=== PATIENT | female | born 1950 | race Caucasian/White ===

== ENCOUNTER 2018-11-15 08:38 | Inpatient (IN) | payer OTHER ==
[2018-11-11 17:19] LABS: BASOPHILS % 0.4 % (0.0-1.0); EOSINOPHILS # (AUTO) 0.2 (0.0-0.4); EOSINOPHILS % 3.3 % (0.0-6.0); HEMATOCRIT 44.8 % (34.2-44.1); HEMOGLOBIN 14.7 g/dL (12.0-16.0); LYMPHOCYTES # (AUTO) 1.2 (1.0-3.2); LYMPHOCYTES % 17.5 % (18.0-39.1); MEAN CORPUSCULAR HEMOGLOBIN 29.5 pg (28-32); MEAN CORPUSCULAR HGB CONC 32.8 g/dL (31-35); MEAN CORPUSCULAR VOLUME 89.8 fL (81-99); MONOCYTES # (AUTO) 0.5 (0.2-0.8); MONOCYTES % 6.7 % (4.4-11.3); NEUTROPHILS # (AUTO) 4.9 (2.1-6.9); NEUTROPHILS % 71.7 % (38.7-80.0); PLATELET COUNT 306 x10e3/uL (140-360); RED BLOOD COUNT 4.99 x10e6/uL (3.6-5.1); RED CELL DISTRIBUTION WIDTH 13.8 % (11.7-14.4)
[2018-11-11 17:37] LABS: ANION GAP 12.3 mmol/L (8-16); BLOOD UREA NITROGEN 10 mg/dL (7-26); BUN/CREATININE RATIO 14 (6-25); CALCIUM 9.7 mg/dL (8.4-10.2); CARBON DIOXIDE 31 mmol/L (22-29); CHLORIDE 101 mmol/L (98-107); CREATININE, SERUM 0.73 mg/dL (0.57-1.11); EST GLOMERULAR FILTRATION RATE > 60 ML/MIN (60-); GLUCOSE 119 mg/dL (74-118); POTASSIUM 3.3 mmol/L (3.5-5.1); SODIUM 141 mmol/L (136-145)
[~2018-11-15] VITALS: Ht 167.6 cm; Wt 140.2 kg
[~2018-11-15 08:38] MED LIST: HYDROCHLOROTHIA25 MG PO; METOPROLOL SUCC25 MG PO; MULTIVITAMINS1 EAC7 PO
--- OUTSIDE RECORDS SUMMARY | 2018-11-15 08:57 | XMS REPORT | Summary of Care ---
Author Author JANEL NGUYỄN Organization Unknown Address Unknown Phone Unavailable Care Team Providers Care Commercial Banker Name Role Phone JANEL NGUYỄN Unavailable Unavailable JONAS MADDEN [place], JACQUELINE MENDOZA Unavailable Unavailable BAILEY MADDEN [place], EDEL Unavailable Unavailable JONAS Gutierrez, JACQUELINE Sanchez Unavailable Unavailable Unavailable Functional Status Name Dates Details Functional status health issues are not documented Status: Name Dates Details Cognitive status health issues are not documented Status: Problems Name Dates Details Acute pharyngitis (462, J02.9) Status: Active Acute upper respiratory infection (465.9, J06.9) Status: Active Hyperglycemia (790.29, R73.9) Status: Active Heme positive stool (792.1, R19.5) Status: Active Impaired fasting glucose (790.21, R73.01) Status: Active Acute bacterial bronchitis (466.0, J20.8) Status: Active Elevated BP without diagnosis of hypertension (796.2, R03.0) Status: Active Prediabetes (790.29, R73.03) Status: Active Osteopenia (733.90, M85.80) Status: Active Right knee pain (719.46, M25.561) Status: Active Encounter for hepatitis C virus screening test for high risk patient (V73.89, Z11.59) Status: Active Depression screening negative (V79.0, Z13.31) Status: Active Herpes simplex type 1 infection (054.9, B00.9) Status: Active Morbid obesity (278.01, E66.01) Status: Active Wheezing symptom (786.07, R06.2) Status: Active BMI 50.0-59.9, adult (V85.43, Z68.43) Status: Active Essential (primary) hypertension (401.9, I10) Status: Active Hyperlipidemia (272.4, E78.5) Status: Active Statin declined (V64.2, Z53.20) Status: Active Medications Name Dates Details valACYclovir HCl - 1 GM Oral Tablet TAKE 1 TABLET EVERY 12 HOURS. Quantity: 30 ILYA P.A., JANEL Active Alendronate Sodium 70 MG Oral Tablet TAKE 1 TABLET ONCE A WEEK * Quantity: 4 Refills: 0 Active Multi-Day TABS TAKE 1 TABLET DAILY. * Refills: 0 Active Calcium + D TABS TAKE 1 TABLET DAILY. * Refills: 0 Active hydroCHLOROthiazide 25 MG Oral Tablet TAKE 1 TABLET DAILY. * Quantity: 90 Refills: 1 ILYA P.A., JANEL * Start : 27-Sep-2018 End : 05-Apr-2019 Active Allergies and Adverse Reactions Name Dates Details No Known Drug Allergies (Allergy) Status: Active Past Medical History Name Dates Details History of dermatitis (V13.3, Z87.2) Status: Resolved History of Herpes simplex type 1 infection (054.9, B00.9) Status: Resolved History of pharyngitis (V12.69, Z87.09) Status: Resolved Procedures Procedure Dates Details History of Section Completed History of Cholecystectomy Completed History of Brain Surgery Completed Immunization Name Dates Details Tdap on: 12-Nov-2007 Zoster (Zostavax) on: Feb-2012 Tdap on: 09-Nov-2014 Prevnar 13 Intramuscular Suspension on: 10-Nov-2015 Pneumovax 23 25 MCG/0.5ML Injection Injectable on: 09-Nov-2016 Influenza on: 09-Nov-2017 Family History Name Dates Details Family history of Colon cancer (153.9, C18.9) Status: Active Name Dates Details No pertinent family history (V49.89, Z78.9) Status: Active Social History Name Dates Details - Status: Name Dates Details Never smoker Vital Signs Date Test Result Details [id number] BP Systolic 138 mm[Hg] Status: Comments: Location: LUE; Position: Sitting BP Diastolic 80 mm[Hg] Status: Comments: Location: LUE; Position: Sitting Height 65 in Status: Weight 307.375 lb Status: Body Mass Index Calculated 51.15 kg/m2 Status: Body Surface Area Calculated 2.37 m2 Status: Temperature 98.4 f Status: Comments: Method: Temporal Respiration Rate 16 /min Status: Heart Rate 83 /min Status: [id number]:05 Physical Findings 0 Status: Comments: Alcohol Screen - How many times in the past yr have you had 5 (for M) or 4 (for F) or 4 (for all > 65yrs) or more drinks in a day? [id number] Physical Findings 1 Status: Comments: PHQ-9 Adult Depression Screening :49 BP Systolic 168 mm[Hg] Status: Comments: Location: LUE; Position: Sitting BP Diastolic 84 mm[Hg] Status: Comments: Location: LUE; Position: Sitting Heart Rate 95 /min Status: Physical Findings 0 Status: Comments: Alcohol Screen - How many times in the past yr have you had 5 (for M) or 4 (for F) or 4 (for all > 65yrs) or more drinks in a day? :47 BP Systolic 180 mm[Hg] Status: Comments: Location: RUE; Position: Sitting BP Diastolic 84 mm[Hg] Status: Comments: Location: RUE; Position: Sitting Height 65 in Status: Weight 311.4 lb Status: Body Mass Index Calculated 51.82 kg/m2 Status: Body Surface Area Calculated 2.39 m2 Status: Temperature 97.4 f Status: Comments: Method: Temporal Respiration Rate 20 /min Status: Heart Rate 94 /min Status: Results Date Description Value Details :14 XRAY Chest 2 views [id number] Chest 2 views SEE NOTES Comments: EXAM: XR CHEST 2 VIEWSDATE: 09/28/2018 9:14 CDTINDICATION: - wheezing symptomCOMPARISON: NoneTECHNIQUE: PA and lateral chest radiographsFINDINGS: No lung parenchymal or pleural abnormalities are seen. Danita andpulmonary vasculature are normal. Cardiac silhouette is normal in size.Atherosclerotic calcifications are seen in the aortic arch. No acute bonyabnormality is identified. Mild multilevel spondylosis is seen in the thoracicspine. Osteoarthritis is seen in the left glenohumeral joint with osteophyteformation inferiorly off of the left humeral head.IMPRESSION: No acute cardiopulmonary abnormality. Mild atheroscleroticvascular disease of the aortic arch.--Read by: David Huerta MDDictated Date/time: 09/28/18 10:02Electronically Signed by: David Huerta MD 0:04FINAL REPORT :39 [QL] LIPID PANEL CHOLESTEROL, TOTAL 222 mg/dl (Above high threshold) Range: <200 HDL CHOLESTEROL 56 mg/dl (Normal) Range: >50 TRIGLYCERIDES 100 mg/dl (Normal) Range: <150 LDL-CHOLESTEROL 145 {MG/DL__CAL} (Above high threshold) Comments: Reference range: <100 Desirable range <100 mg/dL for primary prevention; <70 mg/dL for patients with CHD or diabetic patients with > or=2 CHD risk factors. LDL-C is now calculated using the Chuck calculation, which is a validated novel method providing better accuracy than the Friedewald equation in the estimation of LDL-C. Jordy JERNIGAN et al. GWENDOLYN. 2013;310(19): 3912-7914 (http:/ /education.ShiftPlanning/faq/JGA809) CHOL/HDLC RATIO 4.0 {CALC} (Normal) Range: <5.0 NON HDL CHOLESTEROL 166 {MG/DL__CAL} (Above high threshold) Range: <130 Comments: For patients with diabetes plus 1 major ASCVD risk factor, treating to a non-HDL-C goal of <100 mg/dL (LDL-C of <70 mg/dL) is considered a therapeutic option. [id number] [FORMERLY [facility], [facility]] CMP W/EGFR GLUCOSE 136 mg/dl (Above high threshold) Range: 65-99 Comments: Fasting reference interval For someone without known diabetes, a glucosevalue >125 mg/dL indicates that they may havediabetes and this should be confirmed with afollow-up test. UREA NITROGEN (BUN) 17 mg/dl (Normal) Range: 7-25 CREATININE 0.71 mg/dl (Normal) Range: 0.50-0.99 Comments: For patients >49 years of age, the reference limitfor Creatinine is approximately 13% higher for peopleidentified as -Guine[place]. eGFR NON- 89 {ML/MIN/1.7} (Normal) Range: > OR=60 eGFR 104 {ML/MIN/1.7} (Normal) Range: > OR=60 BUN/CREATININE RATIO NOT APPLICABLE {CALC} Range: 6-22 SODIUM 145 mmol/L (Normal) Range: 135-146 POTASSIUM 4.4 mmol/L (Normal) Range: 3.5-5.3 CHLORIDE 105 mmol/L (Normal) Range: 98-110 CARBON DIOXIDE 32 mmol/L (Normal) Range: 20-32 CALCIUM 9.3 mg/dl (Normal) Range: 8.6-10.4 PROTEIN, TOTAL 6.3 g/dl (Normal) Range: 6.1-8.1 ALBUMIN 3.8 g/dl (Normal) Range: 3.6-5.1 GLOBULIN 2.5 {G/DL__CALC} (Normal) Range: 1.9-3.7 ALBUMIN/GLOBULIN RATIO 1.5 {CALC} (Normal) Range: 1.0-2.5 BILIRUBIN, TOTAL 0.6 mg/dl (Normal) Range: 0.2-1.2 ALKALINE PHSPHATASE 73 u/l (Normal) Range: 33-130 AST 13 u/l (Normal) Range: 10-35 ALT 12 u/l (Normal) Range: 6-29 [id number] [[facility], [facility]] CBC (INCLUDES DIFF/PLT) WHITE BLOOD CELL COUNT 7.5 {Thousand/u} (Normal) Range: 3.8-10.8 RED BLOOD CELL COUNT 5.17 {Million/uL} (Above high threshold) Range: 3.80-5.10 HEMAGLOBIN 15.4 g/dl (Normal) Range: 11.7-15.5 HEMATOCRIT 46.4 % (Above high threshold) Range: 35.0-45.0 MCV 89.7 fL (Normal) Range: 80.0-100.0 MCH 29.8 pg (Normal) Range: 27.0-33.0 MCHC 33.2 g/dl (Normal) Range: 32.0-36.0 RDW 12.8 % (Normal) Range: 11.0-15.0 PLATELET COUNT 303 {Thousand/u} (Normal) Range: 140-400 MPV 10.8 fL (Normal) Range: 7.5-12.5 ABSOLUTE NEUTROPHILS 5243 {cells/uL} (Normal) Range: 5786-4423 ABSOLUTE LYMPHOCYTES 1373 {cells/uL} (Normal) Range: 850-3900 ABSOLUTE MONOCYTES 503 {cells/uL} (Normal) Range: 200-950 ABSOLUTE EOSINOPHILS 345 {cells/uL} (Normal) Range: 15-500 ABSOLUTE BASOPHILS 38 {cells/uL} (Normal) Range: 0-200 NEUTROPHILS 69.9 % (Normal) LYMPHOCYTES 18.3 % (Normal) MONOCYTES 6.7 % (Normal) EOSINOPHILS 4.6 % (Normal) BASOPHILS 0.5 % (Normal) 08-[id number]:39 [QL] TSH, 3RD GENERATION W/REFLEX TO FT4 TSH, 3RD GENERATION W/REFLEX TO FT4 3.75 {MIU/L} (Normal) Range: 0.40-4.50 54-[id number]:39 [[facility], [facility]] HEMOGLOBIN A1c Comments: REPORT COMMENT:FASTING:YES HEMOGLOBIN A1c 6.1 {%_of_total} (Above high threshold) Range: <5.7 Comments: For someone without known diabetes, a hemoglobin A1c value between 5.7% and 6.4% is consistent withprediabetes and should be confirmed with a follow-up test. For someone with known diabetes, a value <7%indicates that their diabetes is well controlled. T2wdrbqyjs should be individualized based on duration ofdiabetes, age, comorbid conditions, and otherconsiderations. This assay result is consistent with an increased riskof diabetes. Currently, no consensus exists regarding use ofhemoglobin A1c for diagnosis of diabetes for children. Plan of Care Name Dates Details Planned Observations Planned Goals not documented Interventions Provided Medication Changes* hydroCHLOROthiazide 25 MG Oral Tablet - Renew * valACYclovir HCl - 1 GM Oral Tablet - Renew Labs/Procedures/Imaging* Tobacco Use Screening; Done: 07 Oct 2018 Plan* moderate statin high risk. declines statin. aha, Instructions Name Dates Details Instructions not documented Encounters Appointment; JANEL CARABALLO P.A. Encounter Diagnosis: Problem not documented On: 08-Dec-2017 15:00 Appointment; EDEL AVALOS M.D. Encounter Diagnosis: Problem not documented On: 27-Sep-2018 14:30 Appointment; JANEL CARABALLO PMarisel Encounter Diagnosis: Problem not documented On: 07-Oct-2018 13:00
[2018-11-15] MEDS ORDERED: CEFAZOLIN SOD 1 GM/NS 50ML 100 ML IV ONE (09:57)
[2018-11-15] MEDS ORDERED: BUPIVACAINE 0.25% 30ML SDV INJ ONE (09:59)
[2018-11-15] MEDS ORDERED: ACETAMINOPHEN 1000 MG/100 ML 100 ML IV ONE (11:55)
[2018-11-15] MEDS ORDERED: SCOPOLAMINE 1.5 MG PATCH ONE (11:56)
[2018-11-15] MEDS ORDERED: SUGAMMADEX SODIUM 200 MG/2 ML VIAL IV ONE (11:56)
[2018-11-15] MEDS ORDERED: LIDOCAINE HCL (LTA) 4 ML SOLN ONE (11:56)
[2018-11-15] MEDS: LACTATED RINGER'S 1,000 ML IV SCH (13:05)
[2018-11-15] MEDS ORDERED: MORPHINE SULFATE 2 MG/ML SYR 1ML IV PRN (13:15)
[2018-11-15] MEDS ORDERED: ONDANSETRON HCL INJ 2MG/ML 2ML 2 MG/ML VIAL IV PRN (13:15)
--- NOTE | 2018-11-15 14:47 | Operative Report ---
DATE OF PROCEDURE: 11/15/2018 SURGEON: Tha Gaines MD PREOPERATIVE DIAGNOSES: 1. Morbid obesity. 2. BMI 52. 3. Hypertension. POSTOPERATIVE DIAGNOSES: 1. Morbid obesity. 2. BMI 52. 3. Hypertension. PREOPERATIVE INDICATION: Treat disease, prevent complications related to comorbid conditions of obesity. PROCEDURE: Laparoscopic vertical sleeve gastrectomy. ANESTHESIA: General. MANUFACTURING JOB TITLES: Nick Smith, registered nurse surgical services (needed due to complexity of case). FLUIDS: 700 mL of crystalloid. EBL: 20 mL. DRAINS: None. COMPLICATIONS: None. SPECIMEN: Partial stomach. GRAFTS: None. FINDINGS: 1. Normal upper GI anatomy. 2. Negative intraoperative EGD leak test. PROCEDURE IN DETAIL: The patient was brought to the operating room and was intubated under general endotracheal anesthesia. She was sterilely prepped and draped in the usual fashion. A preprocedure pause was performed identifying the patient, use of perioperative antibiotics, intended procedure, and staff surgeon. I gained access to the peritoneal cavity via a 5 mm left subcostal incision using a Veress needle. The abdomen was insufflated. Four additional trocars were placed in the standard positions. A liver retractor was placed to expose the stomach and hiatus. The greater curvature of the stomach was mobilized from 3 cm proximal to the pyloric valve to the level of the left yaquelin of the diaphragm using the [place] LigaSure device. I then inserted an adult-sized endoscope along the lesser curvature of the stomach. The greater curvature of the stomach was resected with five firings of a 60 mm Covidien purple load stapling device with reinforced SeamGuard. We then conducted an intraoperative EGD leak test, no leaks were identified. The specimen was removed through the right periumbilical port site. The port site was closed with 0-Vicryl suture using a Alhaji-Matthias technique in a eypnxi-mi-uwhiz fashion. We then verified hemostasis, removed the liver retractor and desufflated the abdomen. The trocars were removed. Incision sites were closed with 4-0 Monocryl suture in a subcuticular fashion. Dermabond dressings were applied. Bupivacaine 0.25% was used both at the preperitoneal incision sites. The patient tolerated the procedure well. Type of wound was type 2, clean and contaminated. ThaMD AYLENE Kirkpatrick/SHIRLEY /[id number]
[2018-11-15] MEDS ORDERED: SCOPOLAMINE 1.5 MG PATCH TOP SCH (15:00)
[2018-11-15] MEDS ORDERED: ONDANSETRON HCL INJ 2MG/ML 2ML 2 MG/ML VIAL ONE ×2 (15:10→19:34)
[2018-11-15] MEDS ORDERED: METOCLOPRAMIDE HCL 10 MG/2ML VIAL ONE (15:18)
[2018-11-15] MEDS ORDERED: FENTANYL CITRATE/PF 100MCG/2 ML INJ ONE ×2 (15:33→18:09)
--- NOTE | 2018-11-15 16:22 | History and Physical ---
CHIEF COMPLAINT: "I had weight loss surgery today." HISTORY OF PRESENT ILLNESS: This 67-year-old white woman, who was admitted to [facility] with diagnosis of extreme obesity, BMI 50, that was complicating her underlying hypertension. The patient underwent successful laparoscopic sleeve gastrectomy today that was performed by her bariatric surgeon, namely Dr. Tha Gaines. The patient has tolerated surgery quite well. The patient states she has slight pain from gas and she is also minimally nauseous. Denies any vomiting. Otherwise, the patient states her pain is well controlled. Blood work done on November 11, 2018, revealed a hemoglobin of 14.7 g. The patient's white blood cell count 6900 with 71% segmenters. The patient's BUN and creatinine are 10 and 0.73 respectively. The patient's potassium was 3.3 on November 11, 2018, but today on November 15, 2018 is 3.7. REVIEW OF SYSTEMS: GENERAL: Weight is stable. No fever or chills. HEENT: No headaches. No vision changes. CARDIOVASCULAR/RESPIRATORY: No chest pain or shortness of breath, or cough. GI: Complains of slight nausea, but no vomiting. States that she does feel gassy at this time. : No UTI since her Bull catheter removed. NEUROMUSCULAR: No limb weakness or numbness. ALLERGIES: NO KNOWN DRUG ALLERGIES. MEDICATIONS: 1. Hydrochlorothiazide 25 mg daily. 2. Metoprolol succinate 25 mg daily. 3. Multivitamins daily. PAST MEDICAL HISTORY: 1. Hypertensive heart disease. 2. Extreme obesity, BMI 52. PAST SURGICAL HISTORY: 1. Laparoscopic sleeve gastrectomy today. 2. Laparoscopic cholecystectomy. 3. section twice. FAMILY HISTORY: Noncontributory. SOCIAL HISTORY: Single. She lives alone. 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 No history of tobacco use. The patient states she drinks alcohol rarely. PHYSICAL EXAMINATION: GENERAL: She is awake, alert, and fluent, distress, very pleasant on exam. She is currently in the Postanesthesia Care Unit. VITAL SIGNS: Blood pressure is 168/76, pulse 84, respiratory rate 16, temperature 97.9, and oxygen saturation 98% on room air. INTEGUMENT: Skin is warm and dry. No pallor, jaundice, or diaphoresis. HEENT: Anicteric sclerae. Moist mucous membranes. NECK: Supple. CARDIOVASCULAR: Distant heart sounds. Regular rate and rhythm. LUNGS: No rales. No rhonchi or wheezing. ABDOMEN: Obese. No bowel sounds auscultated. The patient's laparoscopic incisions are clean, dry, and intact. EXTREMITIES: No edema or deformity. NEUROLOGIC: Intact. DIAGNOSES: 1. Extreme obesity (BMI 50) complicating underlying hypertension. 2. Status post laparoscopic sleeve gastrectomy. 3. Hypertensive heart disease. PLAN: 1. Mobilize the patient. 2. We will start enoxaparin and continue sequential compression devices to prevent deep venous thrombosis. 3. Encourage incentive spirometer use to prevent atelectasis. 4. Blood pressure control. 5. Resume home medications. 6. Pain control. 7. Antiemetics as needed. I would like to thank, Dr. Gaines, for involving the care of this patient. I spent 45 minutes in the care of this patient. MD ALEXIS Meraz/SHIRLEY /[id number] MTDD
--- NOTE | 2018-11-15 17:57 | NUR ---
Received patient from PACU patient arrived in bariatric bed, alert and oriented x2, verbalizing needs, she has 5 laparoscopic sites to anterior abdomen, sealed with Dermabond, IVF LR infusing, #20 gauge to right hand iv site patent, placed on SCD's per orders, and instructed patient orders nothing by mouth. Oriented to room and use of call light, will continue to monitor.
[2018-11-15] MEDS ORDERED: MIDAZOLAM HCL 2 MG/2 ML VIAL ONE (18:09)
[2018-11-15 18:40] VITALS: BP 140/87
--- NOTE | 2018-11-15 19:10 | NUR ---
Patient alert and oriented. Denies pain. Incision sites intact with dermabond. Patient aware of NPO status. Patient has no questions or concerns at this time.
[2018-11-15 19:27] VITALS: BP 161/82
[2018-11-15] MEDS ORDERED: LIDOCAINE HCL 2% JELLY 5 ML TUBE ONE (19:34)
[2018-11-15] MEDS ORDERED: PROPOFOL IV EMULSION 10 MG/ML 20 ML VIAL ONE (19:34)
[2018-11-15] MEDS ORDERED: SEVOFLURANE INHAL SOLN 250 ML PEN BTL ONE (19:34)
[2018-11-15] MEDS ORDERED: DEXAMETHASONE SOD PHOS INJ 4 MG/ML VIAL ONE (19:34)
[2018-11-15] MEDS ORDERED: NEOSTIGMINE 5 MG/5ML SYR ONE (19:34)
[2018-11-15] MEDS ORDERED: GLYCOPYRROLATE INJ 1MG/ 5 ML SYR ONE (19:34)
[2018-11-15] MEDS ORDERED: ROCURONIUM BROMIDE 10 MG/ML 5ML VIAL ONE (19:34)
[2018-11-15] MEDS ORDERED: LIDOCAINE HCL 2% LOCAL INJ 5 ML SDV VIAL INJ ONE (19:34)
--- NOTE | 2018-11-15 20:22 | NUR ---
Per Dr. Ross patient may take Metoprolol 25mg PO tablet with sip of water. Patient tolerated well.
[2018-11-15 20:39] VITALS: BP 161/82
[2018-11-15] MEDS: ENOXAPARIN SOD INJ 40 MG/0.4 ML SYR SC SCH (21:55)
[2018-11-15] MEDS: METOPROLOL SUCCINATE 25 MG TAB XL PO SCH (21:55)
[2018-11-15 23:00] VITALS: BP 162/79
[2018-11-16] MEDS: LACTATED RINGER'S 1,000 ML IV SCH ×2 (01:24→05:05)
[2018-11-16 03:00] VITALS: BP 151/78
[2018-11-16 05:11] LABS: BASOPHILS % 0.3 % (0.0-1.0); EOSINOPHILS % 0.2 % (0.0-6.0); HEMATOCRIT 42.2 % (34.2-44.1); HEMOGLOBIN 13.9 g/dL (12.0-16.0); LYMPHOCYTES # (AUTO) 0.9 (1.0-3.2); LYMPHOCYTES % 7.9 % (18.0-39.1); MEAN CORPUSCULAR HEMOGLOBIN 29.8 pg (28-32); MEAN CORPUSCULAR HGB CONC 32.9 g/dL (31-35); MEAN CORPUSCULAR VOLUME 90.4 fL (81-99); MONOCYTES # (AUTO) 0.6 (0.2-0.8); MONOCYTES % 5.5 % (4.4-11.3); NEUTROPHILS # (AUTO) 10.1 (2.1-6.9); NEUTROPHILS % 85.7 % (38.7-80.0); PLATELET COUNT 313 x10e3/uL (140-360); RED BLOOD COUNT 4.67 x10e6/uL (3.6-5.1); RED CELL DISTRIBUTION WIDTH 13.7 % (11.7-14.4)
[2018-11-16 05:34] LABS: ALANINE AMINOTRANSFERASE 23 IU/L (0-55); ALBUMIN/GLOBULIN RATIO 0.9 (0.8-2.0); ALKALINE PHOSPHATASE 55 IU/L (40-150); ANION GAP 12.7 mmol/L (8-16); BLOOD UREA NITROGEN 15 mg/dL (7-26); BUN/CREATININE RATIO 21 (6-25); CALCIUM 8.5 mg/dL (8.4-10.2); CARBON DIOXIDE 26 mmol/L (22-29); CHLORIDE 104 mmol/L (98-107); CREATININE, SERUM 0.71 mg/dL (0.57-1.11); EST GLOMERULAR FILTRATION RATE > 60 ML/MIN (60-); GLUCOSE 140 mg/dL (74-118); MAGNESIUM 1.8 MG/DL (1.3-2.1); PHOSPHORUS 2.8 MG/DL (2.3-4.7); POTASSIUM 3.7 mmol/L (3.5-5.1); SODIUM 139 mmol/L (136-145)
--- NOTE | 2018-11-16 06:35 | NUR ---
Patient ambulated in room with assistance. Tolerated well.
[2018-11-16 07:10] VITALS: BP 146/73
[2018-11-16] MEDS: METOPROLOL SUCCINATE 25 MG TAB XL PO SCH (08:11)
[2018-11-16] MEDS ORDERED: HYDROCODONE/APAP 7.5MG-325MG 1 EA TAB PO PRN (08:15)
--- NOTE | 2018-11-16 08:27 | NUR ---
PROGRESS NOTE S: No complaints O: AF, VSS General-no distress Abd- soft, incisions c/d/i Labs reviewed A/P: POD 1, s/p Lap sleeve gastrectomy -Clears, ambulate, IS, OOB to chair -DC home -f/u in 1 week
[2018-11-16] MEDS ORDERED: MULTIVITAMINS/MINERALS TAB PO SCH (09:00)
[2018-11-16] MEDS ORDERED: HYDROCHLOROTHIAZIDE 25 MG TAB PO SCH (09:00)
[2018-11-16] MEDS ORDERED: METOPROLOL SUCCINATE 25 MG TAB XL PO SCH (09:00)
[2018-11-16] MEDS ORDERED: ONDANSETRON HCL 4 MG ORAL DISINTEGRATING TAB PO PRN (09:30)
--- NOTE | 2018-11-16 09:31 | Discharge Summary ---
ADMIT DIAGNOSES: 1. Extreme obesity (BMI 50), complicating underlying hypertension. 2. Hypertensive heart disease. DISCHARGE DIAGNOSES: 1. Status post laparoscopic sleeve gastrectomy. 2. Extreme obesity (BMI 50), complicated underlying hypertension. 3. Hypertensive heart disease. HOSPITAL COURSE: This is a 67-year-old white woman, who yesterday underwent a successful laparoscopic sleeve gastrectomy that was performed by her bariatric surgeon namely, Dr. Gaines. The patient's brief hospitalization was unremarkable. CONDITION ON DISCHARGE: Stable. She was tolerating a clear liquid diet on discharge. On day of discharge, the patient's hemoglobin was 13.9 g/dL, white blood cell count [place] [address] with 85% segmenters. The patient's BUN and creatinine on discharge are 15 and 0.71 respectively with a potassium of 3.1. Once again, the patient's condition on discharge is stable. DISCHARGE MEDICATIONS: 1. Tylenol no. 3 one pill every 6 hours p.r.n. pain, 25 prescribed, no refills. 2. Ondansetron 4 mg p.o. q.6 hours p.r.n. nausea, 20 prescribed, no refills. 3. Hydrochlorothiazide 25 mg daily. 4. Metoprolol succinate 25 mg daily. 5. Multivitamin once daily. FOLLOWUP INSTRUCTIONS: The patient was instructed to follow up with Dr. Gaines within [address] Mina Lu, her primary care physician within 2 weeks. MD ALEXIS Meraz/SHIRLEY /[id number] cc: Mina Gaines MD
[2018-11-16] MEDS: ENOXAPARIN SOD INJ 40 MG/0.4 ML SYR SC SCH (10:08)
--- NOTE | 2018-11-16 11:40 | NUR ---
Patient discharged home verbalized understanding of d/c instructions. IV access removed prior to discharge. Escorted patient in wheel chair to front of hospital to meet her son.
== END 2018-11-16 11:35 | disposition home or self-care (01) | DRG 621 ==
LOC: OR 08:38 → PACU V 14:48 → IMCU 18:34
PROVIDERS: ADMIT Internal Medicine; ATTEND Internal Medicine
PROC: 0DB64Z3 Excision of Stomach, Percutaneous Endoscopic Approach, Vertical (ICD-10-PCS; principal; 2018-11-15 11:00)
DX: E66.01 Morbid (severe) obesity due to excess calories (principal); Z68.43 Body mass index [BMI] 50.0-59.9, adult; I11.9 Hypertensive heart disease without heart failure; Z90.49 Acquired absence of other specified parts of digestive tract
CPT/HCPCS: 36415; 43235; 80048; 80053; 83735; 84100; 84132; 85025; 96361; J0690; J1100; J1650; J2001; J2250; J2270; J2405; J2765; J3010; J7121